=== PATIENT | male | born 1965 | race Caucasian/White ===

== ENCOUNTER → 2020-07-11 | Outpatient (CLI) | payer OTHER ==
[~2020-07-11] MED LIST: AVELOX400 MG PO; B12,B-12,B 12500 MC1 PO; BIAXIN500 MG PO; CIPRO500 MG PO; CLARITIN10 MG PO; FLAGYL500 MG PO; Fioricet 325 MG1 TAB PO; MOTRIN800 MG PO; NAPROSYN500 MG PO; NORCO 325 MG-51 TAB PO; Percocet 325 MG1 TAB PO; Zofran4 MG PO
== END | disposition home or self-care (01) ==
LOC: RAD 15:31
PROVIDERS: ATTEND Nurse Practitioner Family
DX: F17.210 Nicotine dependence, cigarettes, uncomplicated (principal); Z80.9 Family history of malignant neoplasm, unspecified